=== PATIENT | female | born 1980 | race Hispanic/Latino ===

== ENCOUNTER 2019-02-03 21:44 | Emergency (ER) | payer OTHER ==
[2019-02-03] MEDS ORDERED: NACL 0.9% 1000 ML 1,000 ML IV ONE (22:09)
[2019-02-03] MEDS ORDERED: NACL 0.9% 1000 ML 1,000 ML ONE (22:10)
[2019-02-03] MEDS ORDERED: ACTIDOSE-AQUA PO ONE (22:33)
[2019-02-03 23:10] LABS: Basophils # (Auto) 0.1 K/mm3 (0.0-0.1); Eosinophils # (Auto) 0.2 K/mm3 (0.0-0.4); Eosinophils % (Auto) 2.2 % (0.0-4.3); Hematocrit 36.4 % (30.3-42.9); Hemoglobin 12.4 gm/dl (10.1-14.3); Lymphocytes # (Auto) 2.2 K/mm3 (1.2-5.4); Lymphocytes % (Auto) 24.4 % (13.4-35.0); Mean Corpuscular HGB Conc 34 % (30-34); Mean Corpuscular Volume 89 fl (79-97); Monocytes # (Auto) 0.9 K/mm3 (0.0-0.8); Monocytes % (Auto) 10.3 % (0.0-7.3); Platelet Count 260 K/mm3 (140-440); Red Blood Count 4.12 M/mm3 (3.65-5.03)
[2019-02-03 23:14] LABS: Alanine Aminotransferase 15 units/L (7-56); Albumin 3.9 g/dL (3.9-5); BUN/Creatinine Ratio 17; Blood Urea Nitrogen 15 mg/dL (7-17); Calcium 9.4 mg/dL (8.4-10.2); Hemolysis Index 6
[2019-02-04 03:02] LABS: Bacteria,Urine 1+ /HPF (Negative); Bilirubin,Urine NEG (Negative); Blood,Urine NEG (Negative); Color,Urine Yellow (Yellow); Mucus,Urine 2+ /HPF; Protein,Urine <15 mg/dL mg/dL (Negative); Urobilinogen,Urine < 2.0 mg/dL (<2.0); WBC,Urine < 1.0 /HPF (0.0-6.0)
--- NOTE | 2019-02-04 03:02 | Emergency Department Report ---
<JAVIER COREY - Last Filed: 02/04/19 02:57> History of Present Illness - General Chief Complaint: Overdose Stated Complaint: OVERDOSE Time Seen by Provider: 02/03/19 22:06 Source: patient, EMS Mode of arrival: Stretcher Limitations: No Limitations - History of Present Illness Initial Comments: Patient is a 38-year-old female who states she accidentally took an overdose of her trazodone. Patient states that she hasn't pill bottle that she puts her night medications in. This bottle was a bottle of trazodone that had 30 pills. Patient states she took the wrong bottle. When asked why she didn't S spit out the pills when she realized that there were way to many pills in her mouth she states "they just went down". Patient states that she was not suicidal. Patient's only complaint currently is that she is drowsy. Patient denies nausea vomiting or syncope - Related Data Allergies Allergy/AdvReac Type Severity Reaction Status Date / Time oxycodone AdvReac Nausea Verified 02/03/19 21:58 ED Review of Systems Comment: All other systems reviewed and negative ED Past Medical Hx - Past Medical History Hx Headaches / Migraines: Yes - Social History Smoking Status: Current Every Day Smoker Substance Use Type: None ED Physical Exam - General Limitations: No Limitations General appearance: alert, in no apparent distress, lethargic - Head Head exam: Present: atraumatic, normocephalic - Eye Eye exam: Present: normal appearance, PERRL, EOMI - ENT ENT exam: Present: mucous membranes moist - Neck Neck exam: Present: normal inspection - Respiratory Respiratory exam: Present: normal lung sounds bilaterally. Absent: respiratory distress, wheezes, rales, rhonchi - Cardiovascular Cardiovascular Exam: Present: regular rate, normal rhythm, normal heart sounds. Absent: systolic murmur, diastolic murmur, rubs, gallop - GI/Abdominal GI/Abdominal exam: Present: soft, normal bowel sounds. Absent: distended, tenderness, guarding, rebound - Extremities Exam Extremities exam: Present: normal inspection - Back Exam Back exam: Present: normal inspection - Neurological Exam Neurological exam: Present: alert, oriented X3 - Psychiatric Psychiatric exam: Present: normal affect, normal mood - Skin Skin exam: Present: warm, dry, intact, normal color. Absent: rash ED Course - Reevaluation(s) Reevaluation #1: 02/04/19 03:00 Poison Control was called . They suggested using charcoal since the patient's ingestion was approximately an hour ago. Patient also need to be monitored for the next 12 hours Patient was placed on 1013 for her safety. Patient states she was not suicidal however she has exhibited behavior that is dangerous to herself. ED Medical Decision Making - Lab Data Result diagrams: 02/03/19 22:30 02/03/19 22:30 Lab Results 02/03/19 02/03/19 02/03/19 Range/Units 22:30 22:30 22:30 WBC 9.2 (4.5-11.0) K/mm3 RBC 4.12 (3.65-5.03) M/mm3 Hgb 12.4 (10.1-14.3) gm/dl Hct 36.4 (30.3-42.9) % MCV 89 (79-97) fl MCH 30 (28-32) pg MCHC 34 (30-34) % RDW 14.0 (13.2-15.2) % Plt Count 260 (140-440) K/mm3 Lymph % (Auto) 24.4 (13.4-35.0) % [place] % (Auto) 10.3 H (0.0-7.3) % Eos % (Auto) 2.2 (0.0-4.3) % Baso % (Auto) Community Liaison Officer Lymph # 2.2 (1.2-5.4) K/mm3 [place] # 0.9 H (0.0-0.8) K/mm3 Eos # 0.2 (0.0-0.4) K/mm3 Baso # 0.1 (0.0-0.1) K/mm3 Seg Neutrophils % 62.4 (40.0-70.0) % Seg Neutrophils # 5.7 (1.8-7.7) K/mm3 Sodium 140 (137-145) mmol/L Potassium 4.2 (3.6-5.0) mmol/L Chloride 101.2 (98-107) mmol/L Carbon Dioxide 25 (22-30) mmol/L Anion Gap 18 mmol/L BUN 15 (7-17) mg/dL Creatinine 0.9 (0.7-1.2) mg/dL Estimated GFR > 60 ml/min BUN/Creatinine Ratio 17 % Glucose 89 (65-100) mg/dL Calcium 9.4 (8.4-10.2) mg/dL Total Bilirubin 0.20 (0.1-1.2) mg/dL AST 13 (5-40) units/L ALT 15 (7-56) units/L Alkaline Phosphatase 78 (35-129) units/L Total Protein 7.0 (6.3-8.2) g/dL Albumin 3.9 (3.9-5) g/dL Albumin/Globulin Ratio 1.3 % HCG, Qual (Negative) Salicylates < 0.3 L (2.8-20.0) mg/dL Acetaminophen (10.0-30.0) ug/mL Plasma/Serum Alcohol (0-0.07) % 02/03/19 02/03/19 02/03/19 Range/Units 22:30 22:30 22:30 WBC (4.5-11.0) K/mm3 RBC (3.65-5.03) M/mm3 Hgb (10.1-14.3) gm/dl Hct (30.3-42.9) % MCV (79-97) fl MCH (28-32) pg MCHC (30-34) % RDW (13.2-15.2) % Plt Count (140-440) K/mm3 Lymph % (Auto) (13.4-35.0) % [place] % (Auto) (0.0-7.3) % Eos % (Auto) (0.0-4.3) % Baso % (Auto) Lymph # (1.2-5.4) K/mm3 [place] # (0.0-0.8) K/mm3 Eos # (0.0-0.4) K/mm3 Baso # (0.0-0.1) K/mm3 Seg Neutrophils % (40.0-70.0) % Seg Neutrophils # (1.8-7.7) K/mm3 Sodium (137-145) mmol/L Potassium (3.6-5.0) mmol/L Chloride (98-107) mmol/L Carbon Dioxide (22-30) mmol/L Anion Gap mmol/L BUN (7-17) mg/dL Creatinine (0.7-1.2) mg/dL Estimated GFR ml/min BUN/Creatinine Ratio % Glucose (65-100) mg/dL Calcium (8.4-10.2) mg/dL Total Bilirubin (0.1-1.2) mg/dL AST (5-40) units/L ALT (7-56) units/L Alkaline Phosphatase (35-129) units/L Total Protein (6.3-8.2) g/dL Albumin (3.9-5) g/dL Albumin/Globulin Ratio % HCG, Qual Negative (Negative) Salicylates (2.8-20.0) mg/dL Acetaminophen < 5.0 L (10.0-30.0) ug/mL Plasma/Serum Alcohol < 0.01 (0-0.07) % - EKG Data -: EKG Interpreted by Md EKG shows normal: sinus rhythm, axis, intervals, QRS complexes, ST-T waves - EKG Data Interpretation: normal EKG ED Disposition Clinical Impression: Overdose, Medical clearance for psychiatric admission Disposition: DC/TX-65 PSY HOSP/PSY UNIT Condition: Stable <SANTIAGO MASSEY - Last Filed: 02/04/19 09:31> ED Review of Systems ROS: Stated complaint: OVERDOSE Other details as noted in HPI ED Course Vital Signs 02/03/19 02/03/19 02/03/19 22:33 23:12 23:31 Pulse Rate 73 74 Respiratory 18 20 18 Rate Blood Pressure 120/39 Blood Pressure 123/51 [Right] O2 Sat by Pulse 99 100 99 Oximetry 02/04/19 02/04/19 02/04/19 00:01 00:31 01:01 Pulse Rate 78 Respiratory 23 Rate Blood Pressure 123/55 127/39 138/68 Blood Pressure [Right] O2 Sat by Pulse 99 98 96 Oximetry 02/04/19 02/04/19 02/04/19 01:31 02:01 03:35 Pulse Rate Respiratory Rate Blood Pressure 126/61 124/52 100/37 Blood Pressure [Right] O2 Sat by Pulse 94 97 Oximetry 02/04/19 02/04/19 02/04/19 04:01 04:31 05:01 Pulse Rate Respiratory Rate Blood Pressure 120/59 118/59 96/50 Blood Pressure [Right] O2 Sat by Pulse 95 95 95 Oximetry 02/04/19 02/04/19 02/04/19 05:30 06:01 07:01 Pulse Rate Respiratory Rate Blood Pressure 114/54 106/46 109/49 Blood Pressure [Right] O2 Sat by Pulse 94 94 94 Oximetry - Reevaluation(s) Reevaluation #2: 02/04/19 09:30 Patient observed in the department for approximately 12 hours without clinical deterioration. Laboratory studies reviewed, vital signs reviewed. No adverse events have been noted. At this point time, the patient is medically suitable for psychiatric placement, consultation, placement and disposition. ED Medical Decision Making - Lab Data Result diagrams: 02/03/19 22:30 02/03/19 22:30 Critical care attestation.: If time is entered above; I have spent that time in minutes in the direct care of this critically ill patient, excluding procedure time. ED Disposition Is pt being admited?: No Does the pt Need Aspirin: No
[2019-02-04 03:07] LABS: Benzodiazepines Screen,Urine PRESUMPTIVE NEGATIVE; Cannabinoid Screen,Urine PRESUMPTIVE NEGATIVE; Cocaine Screen,Urine PRESUMPTIVE NEGATIVE; Methadone Screen,Urine PRESUMPTIVE NEGATIVE; Opiate Screen,Urine PRESUMPTIVE NEGATIVE
[2019-02-04 03:25] LABS: Amphetamine Screen,Urine PRESUMPTIVE POSITIVE
--- NOTE | 2019-02-04 20:12 | Consultation ---
History of Present Illness - Reason for Consult Consult date: 02/04/19 Reason for consult: psychiatric evaluation - Chief Complaint Chief complaint: "accidental overdose" - History of Present Psychiatric Illness Ms. Nj is a 38yo WF who presented to [facility] ED via EMS for "accidental OD" on #29 Trazodone 100mg tablets. She repeated the same information as described in the record, "states she uses an empty pill bottle to put all her QHS meds in to take all at once. Pt states she had the Trazodone bottle open beside the bottle she was placing her QHS meds in. Pt states she mistakenly grabbed the Trazodone bottle instead of the other bottle." Staff noted she was laughing and making jokes about the situation with her fiance and mother at bedside. Per the record, collateral from fiance and mother indicate they have not noticed her exhibiting any s/s of depression and do not believe she intentionally overdosed. She denies a history of depression or anxiety. She denies a history of substance abuse or psychosis. She denies being abused. She states her PCP, Dr. Tristin Hart, prescribed Trazodone as a sleep aid. She denies appetite disturbance. She reports being tired but otherwise denies ill effects from the ingestion of the trazodone. Medications and Allergies Allergies Allergy/AdvReac Type Severity Reaction Status Date / Time oxycodone AdvReac Nausea Verified 02/03/19 21:58 Home Medications Medication Instructions Recorded Confirmed Last Taken Type Acetaminophen/Codeine [Tylenol 1 tab PO DAILY PRN 02/04/19 02/04/19 Unknown History /Codeine # 3 tab] Bupropion HCl [Wellbutrin XL] 300 mg PO DAILY 02/04/19 02/04/19 Unknown History Propranolol [Inderal] 80 mg PO DAILY 02/04/19 02/04/19 Unknown History lamoTRIgine [LaMICtal] 100 mg PO QHS 02/04/19 02/04/19 Unknown History lamoTRIgine [LaMICtal] 200 mg PO BID 02/04/19 02/04/19 Unknown History tiZANidine [Zanaflex 4mg TAB] 4 mg PO TID PRN 02/04/19 02/04/19 Unknown History Past psychiatric history - Past Medical History Past Medical History: other (epilepsy, migraines) - past Psychiatric treatment and history psychiatric treatment history: none no family history of suicide no previous suicide attempts no hospitalization She denies relationship problems - Social History Social history: lives with family (and fiance) Mental Status Exam - Vital signs Last Vital Signs Temp 98.6 F 02/04/19 18:00 Pulse 78 02/04/19 18:00 Resp 16 02/04/19 18:00 BP 107/52 02/04/19 18:00 Pulse Ox 95 02/04/19 18:00 - Exam Orientation: time, place, person Affect: normal Mood: appropriate Thought content: other (she denies SI/HI) Thought Process: Intact Perceptions: none Speech: normal rate and pattern Concentration: focused Motor activity: normal Level of consciousness: alert Memory: Intact Sleep Symptoms: None Interaction: cooperative Results Result Diagrams: 02/03/19 22:30 02/03/19 22:30 Abnormal lab results 02/03/19 02/03/19 02/03/19 Range/Units 22:30 22:30 22:30 [place] % (Auto) 10.3 H (0.0-7.3) % [place] # 0.9 H (0.0-0.8) K/mm3 Salicylates < 0.3 L (2.8-20.0) mg/dL Acetaminophen < 5.0 L (10.0-30.0) ug/mL All other labs normal. Assessment and Plan Assessment and plan: Impression: overdose on trazodone-determined to be likely unintentional Recommendation: rescind 1013 take safety precautions with medications and their containers dispo: when medically cleared, follow up with within the week regarding reason for ER visit will staff with Dr. Parmar.
[2019-02-04 21:12] VITALS: BP 116/69
== END 2019-02-04 21:12 ==
LOC: ED 21:44 → EEVIPCON 21:44 → ED 02-04 21:12
DX: T43.211A Poisoning by selective serotonin and norepinephrine reuptake inhibitors, accidental (unintentional), initial encounter (principal); G43.909 Migraine, unspecified, not intractable, without status migrainosus; G40.909 Epilepsy, unspecified, not intractable, without status epilepticus; Z79.899 Other long term (current) drug therapy; Z88.6 Allergy status to analgesic agent; Y92.89 Other specified places as the place of occurrence of the external cause
CPT/HCPCS: 36415; 80053; 80307; 81001; 84703; 85025; 93005; 93010; 99284; J7030; 80320; G0480